=== PATIENT | male | born 1955 | race Two or more races ===

== ENCOUNTER 2016-12-17 11:26 | Inpatient (IN) | payer MEDICAID ==
[~2016-12-17 11:26] MED LIST: ALDACTONE25 MG PO; AMBIEN10 MG PO; CARVEDILOL25 MG PO; CRESTOR; CRESTOR20 MG/TAB; FLEXERIL 10MG PO; FUROSEMIDE80 MG PO; GLUCOTROL XL2.5 MG PO; INDOCIN50 MG PO; INDOMETHACIN50 M1 PO; NORCO 5/325 TAB1 TAB PO; OXYCONTIN10 M2 PO; PACERONE200 MG PO; PRINIVIL5 MG PO; PROVENTIL0.83 MG/ML IH; RANEXA500 MG PO; [UNRECOGNIZED DRUG - OTHER] PO
[2016-12-17] MEDS ORDERED: POTASSIUM CHLO10 ME1 PO (12:21)
[2016-12-17] MEDS ORDERED: GLUCOTROL XL2.5 M1 PO (12:21)
[2016-12-17] MEDS ORDERED: PULMICORT0.5 MG/22 INH (12:22)
[2016-12-17] MEDS ORDERED: ALDACTONE25 M1 PO (12:22)
[2016-12-17] MEDS ORDERED: LIPITOR80 M1 PO (12:22)
[2016-12-17] MEDS ORDERED: DEMADEX20 M1 PO (12:23)
[2016-12-17] MEDS ORDERED: SEROQUEL25 M2 PO (12:23)
[2016-12-17] MEDS ORDERED: ZYPREXA2.5 M1 PO (12:23)
[2016-12-17] MEDS ORDERED: DEPAKOTE ER250 M1 PO (12:23)
[2016-12-17] MEDS ORDERED: ELIQUIS2.5 M1 PO (12:24)
[2016-12-17] MEDS ORDERED: ASPIRIN EC81 MG PO (12:24)
[2016-12-17 12:41] LABS: BASO % 0.8 % (0-2); BASO ABSOLUTE COUNT 0.1 tho/cmm (0.0-0.2); EOS % 5.9 % (0-7); EOSINOPHIL ABSOLUTE COUNT 0.5 tho/cmm (0.0-0.7); HCT-HEMATOCRIT 33.8 % (36.0-53.5); HGB-HEMOGLOBIN 10.7 gm/dl (13.5-17.0); IMMATURE GRANULOCYTES ABSOLUTE 0.03 tho/cmm (0-0.03); IMMATURE GRANULOCYTES PERCENT 0.3 % (0-0.3); LYMPH % 21.3 % (20-45); LYMPH ABSOLUTE COUNT 1.9 tho/cmm (0.8-4.5); MCH (MEAN CORPUSCULAR HGB) 29.5 pg (28.0-32.0); MCHC MEAN CORPUSCULAR HGB CONC 31.7 % (32.0-36.0); MCV (MEAN CELL VOLUME) 93.1 fl (82.0-96.0); MEAN PLATELET VOLUME 8.8 cmc (9.4-12.4); MONO % 8.9 % (0-12); MONOCYTE ABSOLUTE COUNT 0.8 tho/cmm (0.0-1.2); NEUTROPHIL ABSOLUTE COUNT 5.6 tho/cmm (1.6-8.0); NEUTROPHIL-AUTOMATED 5.6 tho/cmm (1.6-8.0); NEUTROPHILS % 62.8 % (40-80); PLATELET COUNT 317 tho/cmm (150-450); RED BLOOD COUNT 3.63 mil/cmm (4.40-5.70); RED CELL DISTRIBUTION WIDTH 18.2 % (12.4-16.4)
[2016-12-17 12:57] LABS: ANION GAP 13 mmol/L (0-20); BLOOD UREA NITROGEN 25 mg/dl (6-24); CALCIUM 8.9 mg/dl (8.5-10.5); CARBON DIOXIDE-VENOUS 28 mmol/L (22-32); CHLORIDE 104 mmol/l (96-110); GLUCOSE 124 mg/dL (70-110); POTASSIUM 4.2 mmol/L (3.7-5.1); SODIUM 141 mmol/L (135-145); eGFR VALUE FOR BLACK >90 mL/Min
[2016-12-17 20:27] LABS: BASO % 0.6 % (0-2); BASO ABSOLUTE COUNT 0.1 tho/cmm (0.0-0.2); EOS % 5.7 % (0-7); EOSINOPHIL ABSOLUTE COUNT 0.6 tho/cmm (0.0-0.7); HGB-HEMOGLOBIN 11.4 gm/dl (13.5-17.0); IMMATURE GRANULOCYTES ABSOLUTE 0.04 tho/cmm (0-0.03); IMMATURE GRANULOCYTES PERCENT 0.4 % (0-0.3); LYMPH % 28.3 % (20-45); LYMPH ABSOLUTE COUNT 3.1 tho/cmm (0.8-4.5); MCH (MEAN CORPUSCULAR HGB) 30.3 pg (28.0-32.0); MCHC MEAN CORPUSCULAR HGB CONC 32.6 % (32.0-36.0); MCV (MEAN CELL VOLUME) 93.1 fl (82.0-96.0); MEAN PLATELET VOLUME 8.8 cmc (9.4-12.4); MONOCYTE ABSOLUTE COUNT 0.9 tho/cmm (0.0-1.2); NEUTROPHIL ABSOLUTE COUNT 6.2 tho/cmm (1.6-8.0); NEUTROPHIL-AUTOMATED 6.2 tho/cmm (1.6-8.0); PLATELET COUNT 357 tho/cmm (150-450); RED BLOOD COUNT 3.76 mil/cmm (4.40-5.70); RED CELL DISTRIBUTION WIDTH 18.4 % (12.4-16.4); WHITE BLOOD COUNT 10.8 tho/cmm (4.0-10.0)
[2016-12-17 20:43] LABS: ALB/GLOB RATIO 0.7 (0.8-2.0); ALBUMIN 3.4 g/dl (3.5-5.0); ALKALINE PHOSPHATASE 161 U/L (33-138); ALT/SGPT 105 U/L (12-78); ANION GAP 16 mmol/L (0-20); AST/SGOT 28 U/L (10-40); BILIRUBIN,TOTAL 0.7 mg/dl (0.0-1.5); BLOOD UREA NITROGEN 24 mg/dl (6-24); CALCIUM 8.9 mg/dl (8.5-10.5); CARBON DIOXIDE-VENOUS 27 mmol/L (22-32); CHLORIDE 102 mmol/l (96-110); CHOLESTEROL 93 mg/dl (120-200); CREATININE 0.91 mg/dl (0.60-1.30); GLUCOSE 157 mg/dL (70-110); HDL CHOLESTEROL 48 mg/dl (40-60); LDL CHOLESTEROL 31 mg/dl (0-99); SODIUM 141 mmol/L (135-145); TRIGLYCERIDES 70 mg/dl (<149); VLDL 14 mg/dl (0-30); eGFR VALUE FOR BLACK >90 mL/Min
[2016-12-18 00:17] LABS: ABG CO2 ARTERIAL 28 mmol/L (21-27); ARTERIAL BLD GAS O2 SATURATION 94 % (95-98); ARTERIAL BLOOD GAS PCO2 37 mmHg (32-45); ARTERIAL PO2 69 mmHg (70-100); BICARBONATE 27 mmol/L (21-28); BLOOD GAS BASE EXCESS 3 mM/L (-/+3); PH 7.47 Units (7.35-7.45)
[2016-12-18 06:12] LABS: ANION GAP 15 mmol/L (0-20); BLOOD UREA NITROGEN 28 mg/dl (6-24); CALCIUM 8.9 mg/dl (8.5-10.5); CARBON DIOXIDE-VENOUS 27 mmol/L (22-32); CHLORIDE 101 mmol/l (96-110); CREATININE 1.13 mg/dl (0.60-1.30); GLUCOSE 176 mg/dL (70-110); POTASSIUM 4.2 mmol/L (3.7-5.1); SODIUM 139 mmol/L (135-145); eGFR VALUE FOR BLACK 81 mL/Min
[2016-12-18 12:14] LABS: BASO % 0.7 % (0-2); BASO ABSOLUTE COUNT 0.1 tho/cmm (0.0-0.2); EOS % 1.2 % (0-7); EOSINOPHIL ABSOLUTE COUNT 0.1 tho/cmm (0.0-0.7); HCT-HEMATOCRIT 34.7 % (36.0-53.5); IMMATURE GRANULOCYTES ABSOLUTE 0.04 tho/cmm (0-0.03); IMMATURE GRANULOCYTES PERCENT 0.3 % (0-0.3); LYMPH % 18.8 % (20-45); LYMPH ABSOLUTE COUNT 2.2 tho/cmm (0.8-4.5); MCH (MEAN CORPUSCULAR HGB) 29.6 pg (28.0-32.0); MCHC MEAN CORPUSCULAR HGB CONC 31.7 % (32.0-36.0); MCV (MEAN CELL VOLUME) 93.3 fl (82.0-96.0); MONO % 8.7 % (0-12); NEUTROPHIL ABSOLUTE COUNT 8.4 tho/cmm (1.6-8.0); NEUTROPHIL-AUTOMATED 8.4 tho/cmm (1.6-8.0); NEUTROPHILS % 70.3 % (40-80); PLATELET COUNT 348 tho/cmm (150-450); RED BLOOD COUNT 3.72 mil/cmm (4.40-5.70); RED CELL DISTRIBUTION WIDTH 18.1 % (12.4-16.4); WHITE BLOOD COUNT 11.9 tho/cmm (4.0-10.0)
[2016-12-18 12:30] LABS: ALB/GLOB RATIO 0.6 (0.8-2.0); ALBUMIN 3.1 g/dl (3.5-5.0); ALKALINE PHOSPHATASE 150 U/L (33-138); ALT/SGPT 99 U/L (12-78); BLOOD UREA NITROGEN 32 mg/dl (6-24); CALCIUM 8.9 mg/dl (8.5-10.5); CARBON DIOXIDE-VENOUS 25 mmol/L (22-32); CHLORIDE 100 mmol/l (96-110); GLUCOSE 174 mg/dL (70-110); SODIUM 136 mmol/L (135-145)
[2016-12-18 12:33] LABS: ABG CO2 ARTERIAL 26 mmol/L (21-27); ARTERIAL BLD GAS O2 SATURATION 97 % (95-98); ARTERIAL BLOOD GAS PCO2 44 mmHg (32-45); ARTERIAL PO2 108 mmHg (70-100); BICARBONATE 24 mmol/L (21-28); BLOOD GAS BASE EXCESS -1 mM/L (-/+3); PH 7.36 Units (7.35-7.45)
[2016-12-18 12:36] LABS: ANION GAP 16 mmol/L (0-20); AST/SGOT 48 U/L (10-40); BILIRUBIN,TOTAL 1.2 mg/dl (0.0-1.5); CREATININE 1.62 mg/dl (0.60-1.30); POTASSIUM 5.1 mmol/L (3.7-5.1); eGFR VALUE FOR BLACK 53 mL/Min
[2016-12-18 21:17] LABS: MAGNESIUM 2.1 mg/dl (1.8-2.6); POTASSIUM 4.6 mmol/L (3.7-5.1)
[2016-12-18 21:53] LABS: URINE BILIRUBIN NEGATIVE (NEG); URINE BLOOD NEGATIVE (NEG); URINE GLUCOSE (UA) NEGATIVE (NEG); URINE KETONE NEGATIVE (NEG); URINE LEUKOCYTE ESTERASE NEGATIVE (NEG); URINE NITRITE NEGATIVE (NEG); URINE PROTEIN SMALL (NEG)
[2016-12-18 21:58] LABS: URINE APPEARANCE CLEAR; URINE COLOR YELLOW
[2016-12-18 22:29] LABS: URINE EPITHELIAL CELLS 0-1 /[HPF] (0-10); URINE RBC 0 /[HPF] (0-5); URINE WBC 0-1 /[HPF] (0-5)
[2016-12-18 22:36] LABS: URINE TOTAL PROTEIN-RANDOM 19.6 mg/dl (<11.8)
[2016-12-19 05:01] LABS: MAGNESIUM 2.2 mg/dl (1.8-2.6); POTASSIUM 3.9 mmol/L (3.7-5.1)
[2016-12-19 06:43] LABS: ALB/GLOB RATIO 0.6 (0.8-2.0); ALBUMIN 2.9 g/dl (3.5-5.0); ALKALINE PHOSPHATASE 137 U/L (33-138); ALT/SGPT 120 U/L (12-78); ANION GAP 15 mmol/L (0-20); BILIRUBIN,DIRECT 0.4 mg/dl (0.0-0.3); BILIRUBIN,INDIRECT 0.6 mg/dL (0.0-1.0); BLOOD UREA NITROGEN 37 mg/dl (6-24); CALCIUM 8.7 mg/dl (8.5-10.5); CARBON DIOXIDE-VENOUS 28 mmol/L (22-32); CHLORIDE 97 mmol/l (96-110); CREATININE 1.54 mg/dl (0.60-1.30); GLUCOSE 136 mg/dL (70-110); MAGNESIUM 2.1 mg/dl (1.8-2.6); POTASSIUM 3.9 mmol/L (3.7-5.1); SODIUM 136 mmol/L (135-145); eGFR VALUE FOR BLACK 56 mL/Min
[2016-12-19 06:45] LABS: AST/SGOT 85 U/L (10-40)
[2016-12-19 12:27] LABS: MAGNESIUM 2.2 mg/dl (1.8-2.6); POTASSIUM 4.2 mmol/L (3.7-5.1)
[2016-12-19 20:54] LABS: POTASSIUM 4.2 mmol/L (3.7-5.1)
[2016-12-20 05:40] LABS: ANION GAP 15 mmol/L (0-20); BLOOD UREA NITROGEN 47 mg/dl (6-24); CALCIUM 8.4 mg/dl (8.5-10.5); CARBON DIOXIDE-VENOUS 29 mmol/L (22-32); CHLORIDE 92 mmol/l (96-110); GLUCOSE 93 mg/dL (70-110); MAGNESIUM 2.2 mg/dl (1.8-2.6); POTASSIUM 3.9 mmol/L (3.7-5.1); SODIUM 132 mmol/L (135-145); eGFR VALUE FOR BLACK 40 mL/Min
[2016-12-20 05:44] LABS: CREATININE 2.03 mg/dl (0.60-1.30)
[2016-12-21 00:56] LABS: MAGNESIUM 2.2 mg/dl (1.8-2.6); POTASSIUM 3.3 mmol/L (3.7-5.1)
[2016-12-21 05:17] LABS: BASO % 0.3 % (0-2); EOS % 5.7 % (0-7); EOSINOPHIL ABSOLUTE COUNT 0.6 tho/cmm (0.0-0.7); HCT-HEMATOCRIT 30.4 % (36.0-53.5); HGB-HEMOGLOBIN 9.8 gm/dl (13.5-17.0); IMMATURE GRANULOCYTES ABSOLUTE 0.03 tho/cmm (0-0.03); IMMATURE GRANULOCYTES PERCENT 0.3 % (0-0.3); LYMPH % 9.2 % (20-45); MCH (MEAN CORPUSCULAR HGB) 29.2 pg (28.0-32.0); MCHC MEAN CORPUSCULAR HGB CONC 32.2 % (32.0-36.0); MCV (MEAN CELL VOLUME) 90.5 fl (82.0-96.0); MEAN PLATELET VOLUME 9.2 cmc (9.4-12.4); NEUTROPHIL ABSOLUTE COUNT 7.7 tho/cmm (1.6-8.0); NEUTROPHIL-AUTOMATED 7.7 tho/cmm (1.6-8.0); NEUTROPHILS % 74.5 % (40-80); PLATELET COUNT 268 tho/cmm (150-450); RED BLOOD COUNT 3.36 mil/cmm (4.40-5.70); RED CELL DISTRIBUTION WIDTH 17.1 % (12.4-16.4); WHITE BLOOD COUNT 10.3 tho/cmm (4.0-10.0)
[2016-12-21 05:31] LABS: ANION GAP 10 mmol/L (0-20); BLOOD UREA NITROGEN 49 mg/dl (6-24); CALCIUM 8.7 mg/dl (8.5-10.5); CARBON DIOXIDE-VENOUS 39 mmol/L (22-32); CHLORIDE 87 mmol/l (96-110); GLUCOSE 89 mg/dL (70-110); PHOSPHOROUS 3.8 mg/dl (2.5-4.9); POTASSIUM 3.4 mmol/L (3.7-5.1); SODIUM 133 mmol/L (135-145); eGFR VALUE FOR BLACK 62 mL/Min
[2016-12-21 05:35] LABS: CREATININE 1.41 mg/dl (0.60-1.30)
[2016-12-24 04:20] LABS: ANION GAP 11 mmol/L (0-20); BLOOD UREA NITROGEN 61 mg/dl (6-24); CALCIUM 8.9 mg/dl (8.5-10.5); CARBON DIOXIDE-VENOUS 37 mmol/L (22-32); CHLORIDE 87 mmol/l (96-110); GLUCOSE 127 mg/dL (70-110); MAGNESIUM 2.3 mg/dl (1.8-2.6); SODIUM 132 mmol/L (135-145); eGFR VALUE FOR BLACK 58 mL/Min
[2016-12-24 04:22] LABS: POTASSIUM 2.9 mmol/L (3.7-5.1)
[2017-01-02] MEDS ORDERED: ALBUTEROL2.5 MG/0.1 INH (01:25)
[2017-01-02] MEDS ORDERED: COMBIVENT RESPIM4 G1 INH (01:25)
[2017-01-02] MEDS ORDERED: ATIVAN0.5 M1 PO (01:32)
[2017-01-02] MEDS ORDERED: MORPHINE S20 MG/5 M1 (01:36)
[2017-01-02] MEDS ORDERED: MILRINONE IV (01:39)
[2017-01-02] MEDS ORDERED: SENNA LAXATIVE1 EAC1 PO (01:40)
[2017-01-02] MEDS ORDERED: COUMADIN5 M2 PO (01:40)
[2017-01-02] MEDS ORDERED: AMIODARONE HCL200 M1 PO (01:40)
[2017-01-02] MEDS ORDERED: DULCOLAX10 MG PR (01:42)
[2017-01-02] MEDS ORDERED: NORCO 10-325 T1 EACH PO (01:43)
== END 2016-12-24 11:15 | disposition other institution (70) | DRG 292 ==
LOC: EDMED 11:26 → EMR2 16:58 → CAR1 18:43 → PCUB 23:27
PROVIDERS: Emergency Medicine; Internal Medicine Nephrology; Nurse Practitioner Family; ADMIT Internal Medicine Cardiovascular Disease
PROC: 02HV33Z Insertion of Infusion Device into Superior Vena Cava, Percutaneous Approach (ICD-10-PCS; principal; 2016-12-18)
DX: I13.0 Hypertensive heart and chronic kidney disease with heart failure and stage 1 through stage 4 chronic kidney disease, or unspecified chronic kidney disease (principal); I50.22 Chronic systolic (congestive) heart failure; N17.9 Acute kidney failure, unspecified; R64 Cachexia; E11.22 Type 2 diabetes mellitus with diabetic chronic kidney disease; I42.9 Cardiomyopathy, unspecified; N18.9 Chronic kidney disease, unspecified; E78.5 Hyperlipidemia, unspecified; I34.0 Nonrheumatic mitral (valve) insufficiency; B19.20 Unspecified viral hepatitis C without hepatic coma; K74.60 Unspecified cirrhosis of liver; Z51.5 Encounter for palliative care; J44.9 Chronic obstructive pulmonary disease, unspecified; G47.30 Sleep apnea, unspecified; F41.9 Anxiety disorder, unspecified; I48.0 Paroxysmal atrial fibrillation; Z87.891 Personal history of nicotine dependence; Z68.22 Body mass index [BMI] 22.0-22.9, adult; Z91.19 Patient's noncompliance with other medical treatment and regimen
CPT/HCPCS: C1751; J0282; J1120; J1265; J1940; J2260; J2270; J2405; J3411; J3480; J7050